=== PATIENT | male | born 1955 | race Caucasian/White ===

== ENCOUNTER → 2016-09-28 | Outpatient (CLI) | payer OTHER | LOC: FIMAGING 16:52 | PROVIDERS: ATTEND Family Medicine | DX: M25.551 Pain in right hip (principal); M51.36 Other intervertebral disc degeneration, lumbar region; M47.896 Other spondylosis, lumbar region ==

== ENCOUNTER → 2016-12-29 | Outpatient (CLI) | payer OTHER ==
[~2016-12-29] MED LIST: DEPO METHYLPREDNISOLONE 80 MG/ML SDV ONE; IOPAMIDOL (ISOVUE 370) 100 ML BTL IV ONE; LIDOCAINE 1% 300 MG/30 ML SDV ONE; ROPIVACAINE HCL 150 MG/30 ML INJ ONE; SODIUM BICARBONATE 10 MEQ/10 ML SYR IVP ONE
== END ==
LOC: FIMAGING 13:10
PROVIDERS: ATTEND Orthopaedic Surgery
PROC: 3E0U3BZ Introduction of Anesthetic Agent into Joints, Percutaneous Approach (ICD-10-PCS; principal; 2016-12-29)
PROC: 3E0U33Z Introduction of Anti-inflammatory into Joints, Percutaneous Approach (ICD-10-PCS; principal; 2016-12-29)
DX: M16.9 Osteoarthritis of hip, unspecified (principal); M25.551 Pain in right hip
CPT/HCPCS: J1040; J2795; Q9967

== ENCOUNTER → 2017-08-15 | Outpatient (CLI) | payer OTHER | LOC: FIMAGING 07:32 | PROVIDERS: ATTEND Orthopaedic Surgery | DX: Z01.818 Encounter for other preprocedural examination (principal); M16.11 Unilateral primary osteoarthritis, right hip ==

== ENCOUNTER 2017-08-24 05:41 | Inpatient (IN) | payer OTHER ==
[2017-08-24] MEDS ORDERED: POVIDONE-IODINE 20 ML in SODIUM CL IRRIG SOLUTION 500 ML IRR ONE (06:00)
[2017-08-24] MEDS ORDERED: TRANEXAMIC ACID 1,000 MG in NS 100 ML IV ONE (06:00)
[2017-08-24] MEDS ORDERED: ROPIVACAINE 0.2% 80 MG, EPINEPHrine 0.2 MG, KETOROLAC TROMETHAMINE 30 MG in SYRINGE 0 ML IU ONE (06:00)
[2017-08-24] MEDS ORDERED: ceFAZolin 2 GM/SWFI 2 GM/20 ML SYR IVP ONE (06:20)
[2017-08-24] MEDS ORDERED: FAMOTIDINE 20 MG TAB PO ONE (06:20)
[2017-08-24] MEDS ORDERED: ACETAMINOPHEN 325 MG TAB PO ONE (06:20)
[2017-08-24] MEDS ORDERED: DEXAMETHASONE 4 MG/ML VIAL IVP ONE (06:20)
[2017-08-24] MEDS ORDERED: LR 1,000 ML IV ONE (06:31)
[2017-08-24] MEDS ORDERED: PROPOFOL/EMULSION 500 MG/50 ML BOTTLE IV ONE ×2 (06:53→07:59)
[2017-08-24] MEDS ORDERED: MIDAZOLAM 2 MG/2 ML VIAL ONE (06:54)
--- NOTE | 2017-08-24 06:57 | PDANEPAE ---
ANE History of Present Illness Otherwise healthy 62 year old with ROSELIA and Right Hip Pain. ANE Past Medical History - Cardiovascular History Hx Hypertension: Yes Hx Arrhythmias: No Hx Chest Pain: No Hx Coronary Artery / Peripheral Vascular Disease: No Hx CHF / Valvular Disease: No Hx Palpitations: No Cardiovascular History Comment: hypercholesterolemia - Pulmonary History Hx COPD: No Hx Asthma/Reactive Airway Disease: Yes Hx Recent Upper Respiratory Infection: No Hx Oxygen in Use at Home: No Hx Sleep Apnea: Yes Sleep Apnea Screening Result - Last Documented: Positive Pulmonary History Comment: exercised induced asthma. ROSELIA with CPAP - Neurologic History Hx Cerebrovascular Accident: No Hx Seizures: No Hx Dementia: No - Endocrine History Hx Diabetes: No - Renal History Hx Renal Disorders: No - Liver History Hx Hepatic Disorders: No - Neurological & Psychiatric Hx Hx Neurological and Psychiatric Disorders: No - Cancer History Hx Cancer: No - Congenital Disorder History Hx Congenital Disorders: No - GI History Hx Gastrointestinal Disorders: No - Other Health History Other Health History: Allergies - Chronic Pain History Chronic Pain: No - Surgical History Prior Surgeries: tonsillectomy,vasectomy,left knee ACL reconstuction, B knee surgery ANE Review of Systems Review of Systems: - Exercise capacity METS (RN): 4 METS ANE Patient History - Allergies Allergies/Adverse Reactions: No Known Allergies Allergy (Verified 08/24/17 06:21) - Home Medications Home Medications: Aspirin [Aspirin 81mg (*)] 81 mg PO DAILY 08/10/17 [Last Taken 08/17/17] Atorvastatin Calcium [Lipitor 40 mg (*)] 40 mg PO DAILY 08/10/17 [Last Taken ] Doxycycline Hyclate 50 mg PO BID 08/10/17 [Last Taken 08/24/17 05:30] Ivermectin [Soolantra] 1 kandis TP DAILY 08/10/17 [Last Taken 08/23/17] Lisdexamfetamine Dimesylate [Vyvanse] 30 mg PO DAILY 08/10/17 [Last Taken ] Lisinopril [Zestril 40 mg (*)] 40 mg PO BID 08/10/17 [Last Taken 08/24/17] Meloxicam 15 mg PO DAILY 08/10/17 [Last Taken 08/17/17] - NPO status NPO Since - Liquids (Date): 08/23/17 NPO Since - Liquids (Time): 21:00 NPO Since - Solids (Date): 08/23/17 NPO Since - Solids (Time): 21:00 - Smoking Hx Smoking Status: Never smoked - Family Anes Hx Family Hx Anesthesia Complications: none ANE Labs/Vital Signs - Vital Signs Blood Pressure: 147/83 Heart Rate: 67 Respiratory Rate: 16 O2 Sat (%): 95 Height: 177.8 cm Weight: 103 kg ANE Physical Exam - Airway Mallampati Score: Class 1 Mouth exam: normal dental/mouth exam - Pulmonary Pulmonary: no respiratory distress - Cardiovascular Cardiovascular: regular rate and rhythym - ASA Status ASA Status: II ANE Anesthesia Plan Anesthesia Plan: general endotracheal anesthesia, MAC, epidural
[2017-08-24] MEDS ORDERED: BUPIVACAINE/EPI 0.5% 30 ML SDV ONE (07:02)
--- NOTE | 2017-08-24 07:02 | PDHPUP ---
History & Physical Update H&P update statement: This history and physical update is based on an assessment of the patient which was completed after admission or registration (within 24 hours), but prior to the surgery/procedure. H&P update: H&P reviewed & patient examined, no change in patient's condition since H&P completed
[2017-08-24] MEDS ORDERED: BACITRACIN 50,000 UNITS/10 ML SYR IRR ONE (07:03)
[2017-08-24] MEDS ORDERED: POLYMYXIN B SULFATE 500,000 UNIT/10 ML SYR IRR ONE (07:03)
[2017-08-24] MEDS ORDERED: ROPIVACAINE HCL 150 MG/30 ML INJ ONE ×2 (07:16→07:58)
[2017-08-24] MEDS ORDERED: ALBUTEROL HFA ANES ONLY 200 PUFFS/8.5 GM MDI IH ONE (08:07)
[2017-08-24] MEDS ORDERED: ROCURONIUM 50 MG/5 ML VIAL ONE (08:07)
[2017-08-24] MEDS ORDERED: fentaNYL 250 MCG/5 ML INJ ONE (08:08)
[2017-08-24] MEDS ORDERED: DEXAMETHASONE 4 MG/ML VIAL ONE (10:11)
[2017-08-24] MEDS ORDERED: NALOXONE HCL 0.4 MG/ML INJ IVP PRN (10:11)
[2017-08-24] MEDS ORDERED: ONDANSETRON 4 MG/2 ML VIAL ONE (10:11)
[2017-08-24] MEDS ORDERED: fentaNYL 100 MCG/2 ML INJ IVP PRN (10:11)
[2017-08-24] MEDS ORDERED: METOCLOPRAMIDE 10 MG/2 ML VIAL IVP PRN ×2 (10:21→10:46)
[2017-08-24] MEDS ORDERED: MEPERIDINE 25 MG/ML SYR IVP PRN (10:21)
[2017-08-24] MEDS ORDERED: diphenhydrAMINE 25 MG CAP PO PRN (10:46)
[2017-08-24] MEDS ORDERED: POLYETHYLENE GLYCOL 3350 17 GM PKT PO PRN (10:46)
[2017-08-24] MEDS ORDERED: TEMAZEPAM 15 MG CAP PO PRN (10:46)
[2017-08-24] MEDS ORDERED: BISACODYL 10 MG SUPP PR PRN (10:46)
[2017-08-24] MEDS ORDERED: PROMETHAZINE HCL 25 MG SUPPR PR PRN (10:46)
[2017-08-24] MEDS ORDERED: CYCLOBENZAPRINE 10 MG TAB PO PRN (10:46)
[2017-08-24] MEDS ORDERED: PROMETHAZINE HCL 25 MG/ML INJ IVP PRN (10:46)
[2017-08-24] MEDS ORDERED: DIPHENOXYLATE/ATROPINE LOMOTIL 1 TAB PO PRN (10:46)
[2017-08-24] MEDS ORDERED: ONDANSETRON DISINTEGRATING 4 MG TAB PO PRN (10:46)
[2017-08-24] MEDS ORDERED: oxyCODONE IR 5 MG TAB PO PRN (10:46)
[2017-08-24] MEDS ORDERED: ONDANSETRON 4 MG/2 ML VIAL IVP PRN (10:46)
[2017-08-24] MEDS ORDERED: LACTULOSE 20 GM/30 ML UDCUP PO PRN (10:46)
--- NOTE | 2017-08-24 10:46 | POSTOPPROG ---
Post Op Note Date of Operation: 08/24/17 Surgeon: Usman Jeffery Tire Fabricator: Luís Lenz CSA Anesthesiologist: Lela Anesthesia: Epidural, GET(General Endotracheal) Pre-op Diagnosis: R hip OA Post-op Diagnosis: same Procedure: R anterior TRACIE with Negro robotic guidance Inf/Abcess present in the surg proc area at time of surgery?: No EBL: 100-500 (150) Total fluids administered: 2L Drains: Hemovac
--- NOTE | 2017-08-24 10:59 | POSTANESTH ---
Post Anesthetic Evaluation Cardiovascular Status: Normal, Stable Respiratory Status: Normal, Stable Level of Consciousness/Mental Status: Can Participate in Eval Pain Control: Adequate, Prn Tx Ordered Nausea/Vomiting Control: Adequate, Prn Tx Ordered Complications Possibly Related to Anesthesia: None Noted
[2017-08-24] MEDS ORDERED: LR 1,000 ML IV SCH (11:00)
[2017-08-24] MEDS: ACETAMINOPHEN 325 MG TAB PO SCH ×3 (12:25→23:57)
[2017-08-24] MEDS ORDERED: ceFAZolin 2 GM/DEXTROSE 100 ML IV SCH (14:00)
[2017-08-24] MEDS: ceFAZolin 2 GM/SWFI 2 GM/20 ML SYR IVP SCH ×2 (15:38→21:59)
[2017-08-24] MEDS ORDERED: DOXYCYCLINE HYCLATE 50 MG PO SCH (21:00)
[2017-08-24] MEDS ORDERED: DOXYCYCLINE HYCLATE 100 MG CAP/TAB PO SCH (21:00)
[2017-08-24] MEDS: ASPIRIN 325 MG TAB PO SCH (21:38)
[2017-08-24] MEDS: DOXYCYCLINE HYCLATE 100 MG CAP/TAB PO SCH (21:39)
[2017-08-24] MEDS: SENNOSIDES/DOCUSATE SODIUM TAB PO SCH (21:40)
[2017-08-24] MEDS: LISINOPRIL 40 MG TAB PO SCH (21:41)
[2017-08-24] MEDS: FAMOTIDINE 20 MG TAB PO SCH (22:01)
--- NOTE | 2017-08-25 00:29 | GOP ---
[f rep st] OPERATIVE REPORT DATE OF OPERATION: 08/24/2017 SURGEON: Usman Jeffery MD TIRE SORTER: Luís Lenz, CSFA, LSA. Pit Worker Power Shovel was required for the procedure due to the comple xity of the case and the patient's condition for positioning, prepping, draping, retraction and closu re. ANESTHESIA: Epidural and general. PREOPERATIVE DIAGNOSIS: Right hip osteoarthritis. POSTOPERATIVE DIAGNOSIS: Right hip osteoarthritis. PROCEDURE PERFORMED: Right hip anterior approach hip replacement with MAKOplasty robotic guidance, f luoroscopic supervision greater than 1 hour. FINDINGS: SPECIMENS: None. ESTIMATED BLOOD LOSS: 150 cc. INDICATIONS: Patient has severe hip osteoarthritis that failed to improve with conservative measures significantly affecting activities of daily living including walking. Patient elected to proceed wi th anterior approach hip replacement using MAKOplasty robotic guidance after extensive discussion of all possible approaches as well as the risks, benefits, pros, cons, expected recovery and prognosis. The patient verbalized understanding of the risks and benefits of the procedure and signed informed consent prior to the procedure. DESCRIPTION OF PROCEDURE: Patient was seen in the preoperative holding area. The operative consent and extremity were signed. The patient was taken the operating room. After placement of epidural, p elder was still feeling his legs and moving them. Thus, decision was made to go to general anesthes ia. The patient was then placed in the supine position on the Steris fracture table where the hip an d contralateral iliac crest were prepped and draped in the usual sterile fashion. Operative site was confirmed by signature. Operative timeout performed. Allergies reviewed. Antibiotics and TXA admin istered. Three pins were placed in the contralateral iliac crest and pelvic array was fixed. It was well visu alized by the robot. The desired incision for the anterior approach on the hip was infiltrated with 0.25% Marcaine with epinephrine. Incision was made with a 10 blade and carried through the subcutane ous tissue to identify the TFL fascia. This was incised in line with the incision and the TFL was re tracted laterally. The lateral femoral circumflex vessels were coagulated with Aquamantys. The deep TFL was incised and the vastus lateralis was clearly exposed. Pericapsular fat was excised. A T-sh aped capsulotomy was performed and the capsule was preserved for later closure. Femoral array screw was then fixed to the anterior greater trochanter as was the checkpoint for the f emur. Femoral registration was performed using the robot. Femoral neck cut was then performed under robotic guidance. The femoral head was excised with a corkscrew. The acetabulum was exposed in sta ndard fashion. The labrum and pulvinar soft tissue were sharply excised. Pelvic checkpoint was plac ed in the AIIS. Acetabular registration was performed using the robot. Reaming was then performed u sing the robot for the desired size. The cup was impacted into place, again using the robotic Access Network ce system. Good fixation was achieved. The cup was irrigated and dried and the liner was impacted i nto place achieving good locking within the cup. The femur was then exposed in the standard fashion. The femur was broached to the desired size. Tri al neck and head were attached and the hip was relocated. The length and offset were confirmed using the robot. The position of all components was also confirmed at this point fluoroscopically. The h ip was dislocated and the femoral trial components were removed. Stem was impacted into place. Trun nion was cleaned and dried and the head was impacted down onto the trunnion. The wound was copiously irrigated with Betadine including the cup and the hip was then again relocated. Final numbers for l ength and offset were taken using the robot. Component placement was confirmed with fluoroscopy. All checkpoints and femoral array screw were removed. The pelvic roll was also removed. Wound was c opiously irrigated was sterile saline and the capsule was closed with #1 Vicryl. Drain was placed ex iting distal and laterally from deep to TFL. The wound was then closed in layers with #2 Quill in th e TFL fascia and 0 Quill in the deep subcutaneous layer, 4-0 Monocryl on the dermis. The wound was t hen dressed with Dermabond, Steri-Strips, and silver dressing. The patient was then safely awakened, taken to recovery room in stable condition. All critical portions of the procedure were performed by myself, Dr. Jeffery. This operative note was c reated by myself and I was immediately available for emergency cross-coverage at all times. DRAINS: Hemovac x1. COMPLICATIONS: None. IMPLANTS: Tritanium hemispherical cluster hole cup size 60, trident X3 zero-degree polyethylene inse rt 36 mm, F Biolox Delta ceramic V40 femoral head size 36, neck length +0 mm, Accolade II 127-degree neck angle hip stem size 4. /[id number]/MODL
[2017-08-25] MEDS: ACETAMINOPHEN 325 MG TAB PO SCH (05:48)
[2017-08-25 07:23] VITALS: PULSE 71; TEMP 98
--- NOTE | 2017-08-25 07:27 | SOAPPROG ---
SOJANIE Progress Note Assessment/Plan: Assessment: 62-year-old male postop day 1 status post right anterior total hip arthroplasty would make robotic guidance Plan: Weight-bearing as tolerated with assistance, PT/OT Resolving numbness likely secondary to epidural anesthesia. Would not recommend intervention at this time. Pain control as needed Incentive spirometry 10 times per hour DVT prophylaxis with aspirin 325 mg today. Start 2 weeks of Lovenox tomorrow followed by 2 weeks of 325 mg aspirin for 2 more weeks Disposition: Home today after physical therapy 08/25/17 07:23 08/25/17 07:27 Subjective: No acute events. Pain well controlled. Denies fevers chills nausea vomiting chest pain shortness of breath. Does admit to right thigh numbness all the way down to just below the knee. Numbness is medial anterior and lateral but not posterior. It is resolving and improving. Denies weakness. Objective: Vital Signs Temp Pulse Resp BP Pulse Ox 36.7 C 71 17 151/86 H 95 08/25/17 07:20 08/25/17 07:20 08/25/17 07:20 08/25/17 07:20 08/25/17 07:20 Laboratory Results 08/25/17 04:53 08/24/17 08/25/17 08/26/17 05:59 05:59 05:59 Intake Total 2485 Output Total 2180 Balance 305 Awake alert and oriented x3 No acute distress Easy breathing Incision clean dry intact neuro the mid drainage or signs of infection Thigh and calf compartments soft compressible Sensation intact to light touch L4-S1; there is some residual numbness in the medial anterior and lateral thigh to the knee sensation in the anterior knee has improved and is intact motor intact to EHL FHL TA and GSC Drain is been removed, dressing is clean and dry - Time Spent With Patient Time Spent With Patient: 20 - Pending Discharge Pending Discharge Within 24 Hours: Yes Pending Discharge Date: 08/25/17 Pending Discharge Time: 11:00 ICD10 Worksheet Patient Problems: Problems Problem Status Onset Osteoarthritis of right hip Acute
[2017-08-25] MEDS: SENNOSIDES/DOCUSATE SODIUM TAB PO SCH (08:54)
[2017-08-25] MEDS: LISINOPRIL 40 MG TAB PO SCH (08:55)
[2017-08-25] MEDS: FAMOTIDINE 20 MG TAB PO SCH (08:55)
[2017-08-25] MEDS: ASPIRIN 325 MG TAB PO SCH (08:56)
[2017-08-25] MEDS: DOXYCYCLINE HYCLATE 100 MG CAP/TAB PO SCH (08:56)
[2017-08-25] MEDS ORDERED: Lisdexamfetamine Dimesylate [Vyvanse] 30 MG PO SCH (09:00)
[2017-08-25] MEDS ORDERED: Ivermectin [Soolantra] 1 APP TP SCH (09:00)
[2017-08-25] MEDS ORDERED: ATORVASTATIN CALCIUM 40 MG TAB PO SCH (09:00)
[2017-08-25 11:40] VITALS: BP 126/71; RESP 18; O2SAT 96
--- NOTE | 2017-08-25 13:57 | ASDISCHSUM ---
Discharge Information Plan Status:Home with No Needs Medically Cleared to Leave: Discharge Date:08/25/2017 12:59 PM CM D/C Disposition:Home, Routine, Self-Care ADT D/C Disposition:Home, Routine, Self-Care Projected Discharge Date:08/25/2017 12:59 PM Transportation at D/C: Discharge Delay Reason: Follow-Up Date:08/25/2017 12:59 PM Discharge Slot: Final Diagnosis: Placement Information Patient Contact Information Contact Name:RAUL Relationship: Address:[address] City:[place] Alternate Phone: [facility]/Zip Code:[place] [address] Email: Financial Information Financial Class:[employer] Primary Plan Desc:[employer] Primary Plan Number:[id number] Secondary Plan Desc: Secondary Plan Number: Assessment Information Intervention Information
--- NOTE | 2017-08-25 22:03 | GDS ---
[f rep st] DISCHARGE SUMMARY ADMITTING DIAGNOSIS: Right hip osteoarthritis. DISCHARGE DIAGNOSIS: Right hip osteoarthritis. PROCEDURE PERFORMED: Right anterior approach total hip arthroplasty with Negro robotic guidance on . HOSPITAL COURSE: Patient was admitted after undergoing the above procedure which he tolerated well. Postoperatively, pain was very well controlled. He received perioperative antibiotics, DVT prophyla xis with aspirin. On postoperative day 1, required very little pain medication. He was evaluated by Physical and Occupational Therapy, declared safe for home discharge. Patient did have some residual thigh numbness on postop day 0, which was resolving on postoperative day 1, most likely attributable to his epidural anesthesia. DISCHARGE DISPOSITION: Home. CONDITION UPON DISCHARGE: Stable. /[id number]/MODL
== END 2017-08-25 12:59 | disposition home or self-care (01) | DRG 470 ==
LOC: F3N 05:41
PROVIDERS: ADMIT Orthopaedic Surgery; ATTEND Orthopaedic Surgery
PROC: 8E0YXCZ Robotic Assisted Procedure of Lower Extremity (ICD-10-PCS; principal; 2017-08-24 07:15)
PROC: 0SR904Z Replacement of Right Hip Joint with Ceramic on Polyethylene Synthetic Substitute, Open Approach (ICD-10-PCS; principal; 2017-08-24 07:15)
DX: M16.11 Unilateral primary osteoarthritis, right hip (principal); J45.909 Unspecified asthma, uncomplicated; N52.9 Male erectile dysfunction, unspecified; I10 Essential (primary) hypertension; E78.00 Pure hypercholesterolemia, unspecified; G47.33 Obstructive sleep apnea (adult) (pediatric)
CPT/HCPCS: 97116-GP; 97161-GP; 97165-GO; J0171; J0690; J1100; J1885; J2250; J2405; J2704; J2795; J3010

== ENCOUNTER 2017-11-22 20:01 | Day surgery (SDC) | payer OTHER ==
--- NOTE | 2017-11-22 20:39 | EDPHY ---
H & P Time Seen by Provider: 11/22/17 20:38 HPI/ROS: Chief complaint. Trouble swallowing HPI. Patient is a 62-year-old male who had a porch op at about 233 this afternoon. Since then he has been unable to swallow completely. He is unable to swallow liquids. They come back up. Even his saliva if he swallows that comes back up. He has some retrosternal fullness and discomfort since this afternoon. Patient has a history of esophageal stricture and previous esophageal dilation. Apparently weekly the patient gets food stock and has to vomit to clear his esophagus. His last dilation was about 1 year ago. Otherwise no trouble breathing. ROS Constitutional. no fever/chills, no weakness Eyes. no problems with vision ENT. Cannot swallow food or liquids Cardiovascular. Slight retrosternal chest fullness or discomfort Respiratory. no shortness of breath, no cough Abdominal. no abdominal pain, no nausea/vomiting, no diarrhea . no problems urinating MS. no calf pain/swelling, no neck/back pain, no joint pain Skin. no rash Lymph. no swollen glands Neuro. no headache, no dizziness, no difficulty walking or with speech Past Medical/Surgical History: Past medical history esophageal dilation, hypertension, dyslipidemia, attention deficit hyperactivity disorder, hip replacement Social History: , nonsmoker, no alcohol Smoking Status: Never smoked Physical Exam: General Appearance: Alert well-developed male moderate distress vital signs are stable Eyes: Pupils equal and round no pallor or injection. ENT, Mouth: Mucous membranes are moist. No evidence of foreign body Respiratory: There are no retractions, lungs are clear to auscultation. Cardiovascular: Regular rate and rhythm. Gastrointestinal: Abdomen is soft and nontender, no masses, bowel sounds normal. Neurological: Awake and alert, sensory and motor exams grossly normal. Skin: Warm and dry, no rashes. Musculoskeletal: Neck is supple nontender. Extremities symmetrical, full range of motion. Psychiatric: Patient is oriented X 3, there is no agitation. Constitutional: Initial Vital Signs Temperature (C) 36.8 C 11/22/17 20:20 Heart Rate 78 11/22/17 20:20 Respiratory Rate 18 11/22/17 20:20 Blood Pressure 114/75 11/22/17 20:20 O2 Sat (%) 96 11/22/17 20:20 O2 Delivery Mode Room Air Allergies/Adverse Reactions: No Known Allergies Allergy (Verified 11/22/17 20:19) Home Medications: Medication Instructions Recorded Atorvastatin Calcium [Lipitor 40 40 mg PO DAILY 08/10/17 mg (*)] Ivermectin [Soolantra] 1 kandis TP DAILY 08/10/17 Lisdexamfetamine Dimesylate 30 mg PO DAILY 08/10/17 [Vyvanse] Lisinopril [Zestril 40 mg (*)] 40 mg PO BID 08/10/17 Aspirin [Aspirin 325 mg (*)] 325 mg PO DAILY tab 08/25/17 HCTZ (*) 11/22/17 Medical Decision Making Procedures: Attempt to give the patient sips of soft drink but this comes up. Water comes back up. IV normal saline. Morphine and glucagon IV. ED Course/Re-evaluation: On re-evaluation no change after the glucagon and morphine. He is still obstructed and cannot swallow. I consulted and discussed the case with Dr. Du for Gastroenterology who will gather the team and take the patient to endoscopy suite Differential Diagnosis: Esophageal foreign body. I have considered pneumonia as well as aspiration - Data Points Laboratory Results: Laboratory Results 11/22/17 20:56 11/22/17 20:56 11/22/17 11/22/17 20:56 20:56 WBC 10.81 10^3/uL H 10^3/uL (3.80-9.50) RBC 5.55 10^6/uL 10^6/uL (4.40-6.38) Hgb 16.2 g/dL g/dL (13.7-17.5) Hct 46.4 % % (40.0-51.0) MCV 83.6 fL fL (81.5-99.8) MCH 29.2 pg pg (27.9-34.1) MCHC 34.9 g/dL g/dL (32.4-36.7) RDW 12.3 % % (11.5-15.2) Plt Count 324 10^3/uL 10^3/uL (150-400) MPV 9.8 fL fL (8.7-11.7) Neut % (Auto) 60.4 % % (39.3-74.2) Lymph % (Auto) 22.6 % % (15.0-45.0) Bosque % (Auto) 7.2 % % (4.5-13.0) Eos % (Auto) 7.5 % % (0.6-7.6) Baso % (Auto) 1.9 % H % (0.3-1.7) Nucleat RBC Rel Count 0.0 % % (0.0-0.2) Absolute Neuts (auto) 6.54 10^3/uL H 10^3/uL (1.70-6.50) Absolute Lymphs (auto) 2.44 10^3/uL 10^3/uL (1.00-3.00) Absolute Monos (auto) 0.78 10^3/uL 10^3/uL (0.30-0.80) Absolute Eos (auto) 0.81 10^3/uL H 10^3/uL (0.03-0.40) Absolute Basos (auto) 0.20 10^3/uL H 10^3/uL (0.02-0.10) Absolute Nucleated RBC 0.00 10^3/uL 10^3/uL (0-0.01) Immature Gran % 0.4 % % (0.0-1.1) Immature Gran # 0.04 10^3/uL 10^3/uL (0.00-0.10) Sodium 138 mEq/L mEq/L (135-145) Potassium 5.3 mEq/L H mEq/L (3.5-5.2) Chloride 104 mEq/L mEq/L (97-110) Carbon Dioxide 19 mEq/l L mEq/l (22-31) Anion Gap 15 mEq/L mEq/L (8-16) BUN 36 mg/dL H mg/dL (7-23) Creatinine 1.3 mg/dL mg/dL (0.7-1.3) Estimated GFR 56 Glucose 97 mg/dL mg/dL (70-100) Calcium 10.1 mg/dL mg/dL (8.5-10.4) Medications Given: Discontinued Medications Glucagon (Glucagon) 1 mg IVP EDNOW ONE Stop: 11/22/17 20:50 Last Admin: 11/22/17 21:34 Dose: 1 mg Sodium Chloride (Ns) 1,000 mls @ 0 mls/hr IV EDNOW ONE; Wide Open PRN Reason: Protocol Stop: 11/22/17 20:49 Last Admin: 11/22/17 21:00 Dose: 1,000 mls Morphine Sulfate (Morphine) 4 mg IVP EDNOW ONE Stop: 11/22/17 20:49 Last Admin: 11/22/17 21:32 Dose: 4 mg Departure - Departure Disposition: To OP Cath/Surgery Clinical Impression: Foreign body alimentary tract Qualifiers: Encounter type: initial encounter Qualified Code(s): T18.9XXA - Foreign body of alimentary tract, part unspecified, initial encounter Condition: Good Instructions: Esophageal Foreign Body (ED) Additional Instructions: Return for worsening symptoms. Follow up with Gastroenterology.
[2017-11-22] MEDS ORDERED: NS 1,000 ML IV ONE (20:48)
[2017-11-22] MEDS ORDERED: GLUCAGON HCL 1 MG VIAL IVP ONE (20:49)
[2017-11-22 21:05] LABS: PLATELET COUNT 324 10^3/uL (150-400)
[2017-11-22] MEDS ORDERED: MIDAZOLAM 2 MG/2 ML VIAL ONE (22:26)
[2017-11-22] MEDS ORDERED: PROPOFOL/EMULSION 500 MG/50 ML BOTTLE IV ONE (22:26)
--- NOTE | 2017-11-22 22:29 | PDGENHP ---
History & Physical Chief Complaint: Dysphagia History of Present Illness: acute meat impaction unable to swallow saliva Pertinent Past, Social, Family History: h/o EOE Relevant Physical Exam: cv [id number]. chest CTA. abd + bs soft Cardiorespiratory Assessment: asaii
[2017-11-22] MEDS ORDERED: LR 1,000 ML IV ONE (22:32)
--- NOTE | 2017-11-22 23:03 | GCON ---
[f rep st] CONSULTATION DATE OF CONSULTATION: 11/22/2017 CHIEF COMPLAINT: Dysphagia. HPI: I am asked to see this patient in consultation by Dr. Posey for chief complaint of dysphagia. The patient is a pleasant 62-year-old who has a history of eosinophilic esophagitis and dysphagia f or several years, but has been progressing recently over the past several months. He has frequent ep isodes of food sticking, but is always able to regurgitate or pass the food. This afternoon around 2 p.m. he had a pork chop and had a feeling of food sticking in his esophagus. He has been unable to swallow liquids since then. Presented to the emergency room, was given glucagon and morphine without clearance. He is still unable to handle his saliva. He has a feeling of food stuck in his mid ches t with some pain. No hematemesis. He has no GERD symptoms. ALLERGIES: No known allergies. MEDICATIONS: Currently include lisinopril, hydrochlorothiazide, Lipitor, baby aspirin. PAST MEDICAL HISTORY: Eosinophilic esophagitis requiring dilation, last done in 2015, without follow up in GI, hypertension, recent hip replacement earlier this year. SOCIAL HISTORY: Denies alcohol. FAMILY HISTORY: No family history of esophageal strictures. REVIEW OF SYSTEMS: I performed a complete review of systems, which is negative except for the pertin ent positives and negatives noted above in HPI. PHYSICAL EXAM: VITAL SIGNS: He is afebrile at 36.8, BP 144/75, pulse 78. CONSTITUTIONAL: He is al ert and oriented. EYES: No scleral icterus. HEENT: No oral lesions. CARDIOVASCULAR: Regular rat e and rhythm. CHEST: Clear to auscultation. ABDOMEN: Positive bowel sounds, soft, nontender. MERLE ROLOGIC: Nonfocal. SKIN: No rashes. ASSESSMENT: 1. Patient with history of dysphagia with known underlying eosinophilic esophagitis. 2. Acute meat impaction. PLAN: Recommend urgent upper endoscopy for removal of meat bolus. This will be done with the assist ance of Anesthesia. Further recommendations to follow. Likely, may require further treatment for hi s eosinophilic esophagitis. Thank you for the consult. /[id number]/MODL
--- NOTE | 2017-11-22 23:04 | GIREPORT ---
[facility] - Endoscopy Department Patient Name: Oskar Ritter Procedure Date: 11/22/2017 10:25 PM Patient Type: Emergency Department Attending MD/ ER Physician: Luna Du MD Procedure: Upper GI endoscopy Indications: Foreign body in the esophagus h/o EoE Providers: Luna Du MD Medicines: Monitored Anesthesia Care Complications: No immediate complications. Description of Procedure: After obtaining informed consent, the endoscope was passed under direct vision. Throughout the procedure, the patient's blood pressure, pulse, and oxygen saturations were monitored continuously. The Endoscope was intro duced through the mouth, and advanced to the duodenal bulb. The upper GI endo scopy was accomplished without difficulty. The patient tolerated the procedur e well. Findings: Food was found in the lower third of the esophagus with surrounding inflammation and friable mucosa. Removal of food was accomplished with rescue net. Dilation not done in setting of inflammation. Mucosal changes including ringed esophagus, longitudinal furrows and mu cosal friability were found in the entire esophagus. The stomach was normal. The examined duodenum was normal. Estimated Blood Loss: Estimated blood loss was minimal. Post Op Diagnosis: - Food in the lower third of the esophagus. Removal was successful. - Esophageal mucosal changes secondary to eosinophilic esophagitis. - Normal stomach. - Normal examined duodenum. Recommendation: - Patient has a contact number available for emergencies. The signs and symptoms of potential delayed complications were discussed with the pat ient. Return to normal activities tomorrow. Written discharge instructions we re provided to the patient. - Full liquid diet for until tomorrow. - Continue present medications. - Repeat upper endoscopy in 4 weeks for possible dilation. - Discharge patient to home. - Thank you for allowing me to participate in the care of your patient. Attending Participation: I personally performed the entire procedure. Luna Du MD Luna Du MD 11/22/2017 11:03:23 PM This report has been signed electronicallyLuna Du MD Number of Addenda: 0 Note Initiated On: 11/22/2017 10:25 PM [email or web address]
[2017-11-22] MEDS ORDERED: fentaNYL 100 MCG/2 ML INJ IVP PRN (23:10)
[2017-11-22] MEDS ORDERED: NALOXONE HCL 0.4 MG/ML INJ IVP PRN (23:10)
[2017-11-22] MEDS ORDERED: ONDANSETRON 4 MG/2 ML VIAL IVP PRN (23:10)
--- NOTE | 2017-11-22 23:10 | PDANEPAE ---
ANE Past Medical History - Cardiovascular History Hx Hypertension: Yes Hx Arrhythmias: No Hx Chest Pain: No Hx Coronary Artery / Peripheral Vascular Disease: No Hx CHF / Valvular Disease: No Hx Palpitations: No Cardiovascular History Comment: hypercholesterolemia - Pulmonary History Hx COPD: No Hx Asthma/Reactive Airway Disease: Yes Hx Recent Upper Respiratory Infection: No Hx Oxygen in Use at Home: No Hx Sleep Apnea: Yes Pulmonary History Comment: exercised induced asthma. ROSELIA with CPAP - Neurologic History Hx Cerebrovascular Accident: No Hx Seizures: No Hx Dementia: No - Endocrine History Hx Diabetes: No - Renal History Hx Renal Disorders: No - Liver History Hx Hepatic Disorders: No - Neurological & Psychiatric Hx Hx Neurological and Psychiatric Disorders: No - Cancer History Hx Cancer: No - Congenital Disorder History Hx Congenital Disorders: No - GI History Hx Gastrointestinal Disorders: No - Other Health History Other Health History: Allergies - Chronic Pain History Chronic Pain: No - Surgical History Prior Surgeries: tonsillectomy,vasectomy,left knee ACL reconstuction, B knee surgery ANE Review of Systems Review of Systems: ANE Patient History - Allergies Allergies/Adverse Reactions: No Known Allergies Allergy (Verified 11/22/17 20:19) - Home Medications Home Medications: Atorvastatin Calcium [Lipitor 40 mg (*)] 40 mg PO DAILY 08/10/17 [Last Taken ] Ivermectin [Soolantra] 1 kandis TP DAILY 08/10/17 [Last Taken 08/23/17] Lisdexamfetamine Dimesylate [Vyvanse] 30 mg PO DAILY 08/10/17 [Last Taken ] Lisinopril [Zestril 40 mg (*)] 40 mg PO BID 08/10/17 [Last Taken 08/24/17] HCTZ (*) 11/22/17 [Last Taken Unknown] - Smoking Hx Smoking Status: Never smoked - Family Anes Hx Family Hx Anesthesia Complications: none ANE Labs/Vital Signs - Labs Result Diagrams: 11/22/17 20:56 11/22/17 20:56 - Vital Signs Blood Pressure: 161/91 Heart Rate: 83 Respiratory Rate: 18 O2 Sat (%): 98 Height: 177.8 cm Weight: 100 kg ANE Physical Exam - Airway Mallampati Score: Class 2 - ASA Status ASA Status: II, E ANE Anesthesia Plan Total IV Anesthesia: Yes Urgent/Emergent Case: Anes eval completed preop but documented later for safe timely pt care
[2017-11-22 23:47] VITALS: BP 113/17
== END 2017-11-22 23:35 | disposition home or self-care (01) ==
LOC: FSGY 20:01
PROVIDERS: ATTEND Internal Medicine Gastroenterology
PROC: 0DC38ZZ Extirpation of Matter from Lower Esophagus, Via Natural or Artificial Opening Endoscopic (ICD-10-PCS; principal; 2017-11-22 22:15)
DX: T18.128A Food in esophagus causing other injury, initial encounter (principal); K20.0 Eosinophilic esophagitis; R13.10 Dysphagia, unspecified; E86.9 Volume depletion, unspecified; I10 Essential (primary) hypertension; E78.00 Pure hypercholesterolemia, unspecified; G47.33 Obstructive sleep apnea (adult) (pediatric); Z96.649 Presence of unspecified artificial hip joint
CPT/HCPCS: 96374; J1610; J2250; J2270; J2704